=== PATIENT | female | born 1965 | race African-American/Black ===

== ENCOUNTER 2016-10-01 09:33 | Emergency (ER) | payer BC, OTHER ==
[~2016-10-01] VITALS: Ht 162.6 cm; Wt 80.7 kg
[~2016-10-01 09:33] MED LIST: ASPIR 8181 M1 PO; CLONAZEPAM 0.50.5 M1 PO; CLONAZEPAM 1 MG1 M1 PO; COUMADIN; IRON; LORTAB 5 MG/5001 TA1 PO; NORCO 5-325 TA1 EACH PO; TRAMADOL 50 MG50 MG PO
[2016-10-01 09:34] VITALS: BP 144/96
[2016-10-01] MEDS ORDERED: LIPITOR10 MG PO (09:56)
[2016-10-01] MEDS ORDERED: HYDROXYZINE HCL25 M1 PO (10:44)
== END 2016-10-01 11:04 | disposition home or self-care (01) ==
LOC: ER 09:33
DX: S60.222A Contusion of left hand, initial encounter (principal); S60.221A Contusion of right hand, initial encounter; L29.9 Pruritus, unspecified; F10.99 Alcohol use, unspecified with unspecified alcohol-induced disorder; Z86.73 Personal history of transient ischemic attack (TIA), and cerebral infarction without residual deficits; Z91.048 Other nonmedicinal substance allergy status; W20.8XXA Other cause of strike by thrown, projected or falling object, initial encounter; Y93.89 Activity, other specified; Y92.000 Kitchen of unspecified non-institutional (private) residence as the place of occurrence of the external cause; Y99.8 Other external cause status

== ENCOUNTER 2016-11-25 12:01 | Emergency (ER) | payer BC ==
[~2016-11-25] VITALS: Ht 160 cm; Wt 80.7 kg
[~2016-11-25 12:01] MED LIST changes: +HYDROXYZINE HCL25 M1 PO; +LIPITOR10 MG PO
[2016-11-25] MEDS ORDERED: NAPROSYN500 MG PO (15:00)
[2016-11-25] MEDS ORDERED: NORFLEX100 MG PO (15:00)
[2016-11-25 15:15] VITALS: BP 144/96
== END 2016-11-25 15:15 | disposition home or self-care (01) ==
LOC: ER 12:01
DX: S16.1XXA Strain of muscle, fascia and tendon at neck level, initial encounter (principal); S29.012A Strain of muscle and tendon of back wall of thorax, initial encounter; R07.89 Other chest pain; E78.00 Pure hypercholesterolemia, unspecified; F10.99 Alcohol use, unspecified with unspecified alcohol-induced disorder; Z86.73 Personal history of transient ischemic attack (TIA), and cerebral infarction without residual deficits; Z88.8 Allergy status to other drugs, medicaments and biological substances; V89.2XXA Person injured in unspecified motor-vehicle accident, traffic, initial encounter; Y93.I9 Activity, other involving external motion; Y92.89 Other specified places as the place of occurrence of the external cause; Y99.8 Other external cause status

== ENCOUNTER 2019-07-11 12:23 | Emergency (ER) | payer BC, OTHER ==
[~2019-07-11] VITALS: Ht 162.6 cm; Wt 78.9 kg
[~2019-07-11 12:23] MED LIST changes: +NAPROSYN500 MG PO; +NORFLEX100 MG PO
[2019-07-11 12:28] VITALS: BP 158/99
[2019-07-11] MEDS ORDERED: MOBIC15 MG PO (12:42)
== END 2019-07-11 13:06 | disposition home or self-care (01) ==
LOC: ER 12:23
DX: M25.531 Pain in right wrist (principal); M25.532 Pain in left wrist; R22.32 Localized swelling, mass and lump, left upper limb; E78.00 Pure hypercholesterolemia, unspecified; Z86.73 Personal history of transient ischemic attack (TIA), and cerebral infarction without residual deficits; Z98.890 Other specified postprocedural states; Z79.899 Other long term (current) drug therapy; Z79.82 Long term (current) use of aspirin; Z91.048 Other nonmedicinal substance allergy status

== ENCOUNTER 2020-09-19 10:38 | Emergency (ER) | payer BC, OTHER ==
[2020-09-19 10:38] VITALS: BP 128/87
[~2020-09-19 10:38] MED LIST changes: +MOBIC15 MG PO
[2020-09-19 11:34] LABS: ABSOLUTE NEUTROPHILS 2.6 thou/uL (1.4-8.2); BASOPHILS 1.1 % (0.0-2.0); EOSINOPHILS 2.6 % (0.0-3.0); HEMATOCRIT 36.5 % (37.0-47.0); HEMOGLOBIN 12.1 gm/dL (12.0-15.0); LYMPHOCYTES 40.6 % (24.0-44.0); MCH 30.4 pg (26.0-34.0); MCV 92.2 fL (80.0-100.0); MONOCYTES 7.1 % (1.0-8.0); PLATELET COUNT 288 thou/uL (150-400); POLYS 48.6 % (36.0-66.0); RBC 3.96 mil/uL (4.20-5.00); RDW 14.1 % (10.5-14.5); WBC 5.4 thou/uL (4.0-11.0)
[2020-09-19 11:53] LABS: CALCIUM 9.3 mg/dL (8.5-10.1); CREATININE 0.7 mg/dL (0.6-1.0); POTASSIUM 4.1 mmol/L (3.5-5.1)
[2020-09-19 11:56] LABS: TOTAL BILIRUBIN 0.3 mg/dL (0.2-1.0); TOTAL PROTEIN 7.2 g/dL (6.4-8.2); URIC ACID* 4.4 mg/dL (2.6-6.0)
[2020-09-19] MEDS ORDERED: NORCO5 PO ×2 (12:48→13:16)
[2020-09-19] MEDS ORDERED: PREDNISONE 10 M10 M1 PO ×2 (12:48→13:16)
== END 2020-09-19 13:36 | disposition home or self-care (01) ==
LOC: ER 10:38
PROVIDERS: Physician Assistant
DX: M25.532 Pain in left wrist (principal); M25.531 Pain in right wrist; M25.40 Effusion, unspecified joint; E78.00 Pure hypercholesterolemia, unspecified; Z98.890 Other specified postprocedural states; Z79.82 Long term (current) use of aspirin; Z79.899 Other long term (current) drug therapy; Z72.89 Other problems related to lifestyle

== ENCOUNTER 2021-01-29 16:23 | Emergency (ER) | payer BC, OTHER ==
[~2021-01-29] VITALS: Ht 162.6 cm; Wt 78.0 kg
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
[~2021-01-29 16:23] MED LIST changes: +NORCO5 PO; +PREDNISONE 10 M10 M1 PO
[2021-01-29] MEDS ORDERED: NORCO7.5 PO (18:05)
[2021-01-29] MEDS ORDERED: ULTRA-LIGHT RO1 EACH (18:05)
[2021-01-29 18:11] VITALS: BP 115/68
== END 2021-01-29 18:31 | disposition home or self-care (01) ==
LOC: ER 16:23
DX: S80.01XA Contusion of right knee, initial encounter (principal); E78.00 Pure hypercholesterolemia, unspecified; Z86.73 Personal history of transient ischemic attack (TIA), and cerebral infarction without residual deficits; Z79.899 Other long term (current) drug therapy; W03.XXXA Other fall on same level due to collision with another person, initial encounter; Y93.89 Activity, other specified; Y92.89 Other specified places as the place of occurrence of the external cause; Y99.8 Other external cause status